=== PATIENT | male | born 1990 | race African-American/Black ===

== ENCOUNTER 2021-03-28 13:17 | Inpatient (IN) ==
[2021-03-28 13:53] LABS: Basophils # 0.1 10*3/uL (0.0-0.2); Basophils % 0.8 % (0.0-0.8); Eosinophils % 0.5 % (0.00-10.9); Hematocrit 44.2 VOL% (42.0-52.0); Hemoglobin 14.6 GM/DL (14.0-18.0); Immature Granulocytes % 0.5 %; Immature Granulocytes Absolute 0.03 #; Lymphocytes # 1.6 10*3/uL (1.4-4.0); Lymphocytes % 24.8 % (21.2-54.2); Mean Corpuscular Volume 90.4 FL (87-102); Mean Platelet Volume 11.7 FL (9.6-12.0); Monocytes % 7.2 % (1.7-12.7); Neutrophils % 66.2 % (38.7-73.9); Platelet Count 218 T/CUMM (130-400); Red Blood Count 4.89 MC/CUMM (3.8-5.5); Red Cell Distribution Width 15.7 % (9.3-17.3); White Blood Count 6.3 T/CUMM (4-12)
[2021-03-28 14:06] LABS: Albumin 4.1 G/DL (3.4-5.0); Calcium 9.2 MG/DL (8.5-10.1); Osmolality,Calculated 286.4 MOS/KG (273-304); Potassium 3.9 MMOL/L (3.5-5.1); Total Protein 8.2 G/DL (6.4-8.2)
[2021-03-28 14:11] LABS: ABG Base Excess -16.4 MMOL/L (-2.5-2.5); ABG HCO3 7.8 MMOL/L (20-26); ABG PH 7.271 (7.35-7.45); ABG TCO2 8.3 MMOL/L (23-27)
[2021-03-28 14:20] LABS: ABG PCO2 17.3 MM HG (35-48)
[2021-03-28] MEDS ORDERED: SODIUM CHLORIDE 0.9% 1,000 ML IV STA (14:25)
[2021-03-28] MEDS ORDERED: INSULIN REGULAR 100 UNIT/ML IV STA (14:26)
[2021-03-28] MEDS ORDERED: INSULIN REGULAR DRIP 100 ML IV PRN (14:46)
[2021-03-28] MEDS ORDERED: ALBUTEROL 2.5 MG/3 ML NEB RESP TX PRN (14:56)
[2021-03-28] MEDS ORDERED: ONDANSETRON 4 MG/2 ML VIAL IV PRN (14:56)
[2021-03-28] MEDS ORDERED: INSULIN REGULAR 100 UNIT/ML IV ONE (15:25)
[2021-03-28] MEDS ORDERED: MAGNESIUM SULF RIDER 2 GM/50 ML PREMIX IV PRN (15:25)
[2021-03-28] MEDS ORDERED: MAGNESIUM SULF RIDER 4 GM/100 ML PREMIX IV PRN (15:25)
[2021-03-28] MEDS ORDERED: SODIUM CHLORIDE 0.9% 1,000 ML IV ONE (15:25)
[2021-03-28] MEDS ORDERED: DEXTROSE 50% 25 GM/50 ML VIAL IV PRN ×3 (15:25)
[2021-03-28] MEDS ORDERED: POTASSIUM CHLORIDE RIDER 10 MEQ/100 ML PREMIX IV PRN (15:25)
[2021-03-28] MEDS ORDERED: SODIUM PHOSPHATE INJ 20 MMOL in SODIUM CHLORIDE 0.9% 250 ML IV PRN (15:25)
[2021-03-28] MEDS ORDERED: GLUCAGON 1 MG VIAL IM PRN (15:25)
[2021-03-28] MEDS ORDERED: SODIUM BICARB INJ 100 MEQ in STERILE WATER INJ 400 ML IV PRN (15:25)
[2021-03-28] MEDS ORDERED: INSULIN REGULAR DRIP 100 ML IV SCH ×2 (15:30→16:30)
[2021-03-28 15:49] LABS: Bilirubin,Urine Negative (Negative); Blood, Urine Small mg/dL (Negative); Glucose,Urine (UA) >=500 mg/dL (Negative); Ketones,Urine 80 mg/dL (Negative); Mucus,Urine Occasional /LPF (Occasional); Nitrite,Urine Negative (Negative); Protein,Urine Negative; RBC,Urine 1 /HPF (0-4); Squamous Epithelial Cell,Urine Occasional /HPF (0-10); Urine Appearance CLEAR (Clear); Urine Color Straw (Yellow); Urine Specific Gravity 1.029 (1.001-1.035); Urine Urobilinogen < 2.0 EU/DL (0.2-1.0)
[2021-03-28 16:21] LABS: Calcium 8.3 MG/DL (8.5-10.1); Osmolality,Calculated 291.4 MOS/KG (273-304); Potassium 3.1 MMOL/L (3.5-5.1)
[2021-03-28] MEDS: SODIUM CHLORIDE 0.9% 1,000 ML IV SCH ×2 (16:30→18:36)
[2021-03-28] MEDS ORDERED: SODIUM CHLORIDE IV ONE (17:00)
[2021-03-28] MEDS ORDERED: POTASSIUM CHLORIDE IV ONE (17:00)
[2021-03-28] MEDS: POTASSIUM CHLORIDE 20 MEQ TABLET PO SCH ×3 (18:41→22:30)
[2021-03-28] MEDS ORDERED: SODIUM CHLORIDE 0.9% 1,000 ML IV SCH (20:30)
[2021-03-28] MEDS: DEXTROSE 5% NACL 0.9% 1,000 ML IV SCH (21:09)
[2021-03-29] MEDS: DEXTROSE 5% NACL 0.9% 1,000 ML IV SCH ×2 (01:11→06:41)
[2021-03-29] MEDS: POTASSIUM CHLORIDE 20 MEQ TABLET PO SCH ×4 (02:36→16:50)
[2021-03-29 04:44] LABS: ABG HCO3 14.5 MMOL/L (20-26); ABG Oxygen Saturation 98.2 % (95-100); ABG PCO2 27.7 MM HG (35-48); ABG TCO2 11.4 MMOL/L (23-27)
[2021-03-29] MEDS ORDERED: SODIUM CHLORIDE 0.9% 1,000 ML IV SCH (05:00)
[2021-03-29 05:41] LABS: Basophils # 0.1 10*3/uL (0.0-0.2); Basophils % 0.9 % (0.0-0.8); Eosinophils # 0.1 10*3/uL (0.0-0.87); Eosinophils % 0.9 % (0.00-10.9); Hematocrit 40.3 VOL% (42.0-52.0); Hemoglobin 13.2 GM/DL (14.0-18.0); Immature Granulocytes % 0.4 %; Immature Granulocytes Absolute 0.02 #; Lymphocytes # 2.1 10*3/uL (1.4-4.0); Mean Corpuscular HGB Conc 32.8 GM/DL (32-36); Mean Corpuscular Volume 89.8 FL (87-102); Mean Platelet Volume 11.9 FL (9.6-12.0); Monocytes % 6.3 % (1.7-12.7); Neutrophils % 52.5 % (38.7-73.9); Platelet Count 188 T/CUMM (130-400); Red Blood Count 4.49 MC/CUMM (3.8-5.5); Red Cell Distribution Width 15.9 % (9.3-17.3); White Blood Count 5.3 T/CUMM (4-12)
[2021-03-29 06:51] LABS: Albumin 2.8 G/DL (3.4-5.0); Bilirubin,Total 0.7 MG/DL (0.20-1.00); Calcium 8.4 MG/DL (8.5-10.1); Osmolality,Calculated 287.1 MOS/KG (273-304); Potassium 3.5 MMOL/L (3.5-5.1)
[2021-03-29 06:52] LABS: Calcium 8.2 MG/DL (8.5-10.1); Osmolality,Calculated 283.4 MOS/KG (273-304); Potassium 3.5 MMOL/L (3.5-5.1)
[2021-03-29 08:01] LABS: Calcium 8.5 MG/DL (8.5-10.1); Osmolality,Calculated 282.3 MOS/KG (273-304); Potassium 3.4 MMOL/L (3.5-5.1)
[2021-03-29] MEDS ORDERED: MAGNESIUM SULF RIDER 2 GM/50 ML PREMIX IV ONE (08:04)
[2021-03-29] MEDS ORDERED: SODIUM CHLORIDE 0.45% 1,000 ML IV SCH (08:30)
[2021-03-29] MEDS: INSULIN REGULAR 100 UNIT/ML SUBCUT SCH ×4 (09:07→20:51)
[2021-03-29] MEDS: PANTOPRAZOLE 40 MG TABLET PO SCH (09:08)
[2021-03-29] MEDS: INSULIN GLARGINE 100 UNIT/ML SUBCUT SCH ×2 (09:08→09:09)
[2021-03-29] MEDS ORDERED: POTASSIUM PHOSPHATE 30 MMOL in SODIUM CHLORIDE 0.9% 250 ML IV ONE (10:00)
[2021-03-29 12:04] LABS: Calcium 8.4 MG/DL (8.5-10.1); Potassium 3.8 MMOL/L (3.5-5.1)
[2021-03-29] MEDS: LACTATED RINGERS 1,000 ML IV SCH ×2 (12:44→20:53)
[2021-03-30] MEDS: INSULIN REGULAR 100 UNIT/ML SUBCUT SCH ×6 (00:50→22:00)
[2021-03-30] MEDS: LACTATED RINGERS 1,000 ML IV SCH ×2 (04:15→13:03)
[2021-03-30] MEDS: PANTOPRAZOLE 40 MG TABLET PO SCH (08:44)
[2021-03-30] MEDS: INSULIN GLARGINE 100 UNIT/ML SUBCUT SCH ×2 (08:44→12:57)
[2021-03-30 09:35] LABS: Basophils % 0.6 % (0.0-0.8); Eosinophils # 0.1 10*3/uL (0.0-0.87); Eosinophils % 1.4 % (0.00-10.9); Hematocrit 36.8 VOL% (42.0-52.0); Hemoglobin 12.6 GM/DL (14.0-18.0); Immature Granulocytes % 0.2 %; Immature Granulocytes Absolute 0.01 #; Lymphocytes # 1.8 10*3/uL (1.4-4.0); Lymphocytes % 37.2 % (21.2-54.2); Mean Corpuscular HGB Conc 34.2 GM/DL (32-36); Mean Corpuscular Volume 88.5 FL (87-102); Mean Platelet Volume 10.9 FL (9.6-12.0); Monocytes % 10.5 % (1.7-12.7); Neutrophils % 50.1 % (38.7-73.9); Platelet Count 158 T/CUMM (130-400); Red Blood Count 4.16 MC/CUMM (3.8-5.5); Red Cell Distribution Width 15.5 % (9.3-17.3); White Blood Count 4.9 T/CUMM (4-12)
[2021-03-30 10:09] LABS: Albumin 2.7 G/DL (3.4-5.0); Bilirubin,Total 0.8 MG/DL (0.20-1.00); Calcium 8.3 MG/DL (8.5-10.1); Osmolality,Calculated 282.5 MOS/KG (273-304); Total Protein 5.6 G/DL (6.4-8.2)
[2021-03-30] MEDS ORDERED: POTASSIUM CHLORIDE 20 MEQ TABLET PO ONE (12:04)
[2021-03-30] MEDS ORDERED: INSULIN GLARGINE 100 UNIT/ML SUBCUT ONE (12:45)
[2021-03-30] MEDS: POTASSIUM CHLORIDE 20 MEQ TABLET PO PRN ×2 (15:41→17:58)
[2021-03-31] MEDS: INSULIN REGULAR 100 UNIT/ML SUBCUT SCH ×4 (01:11→12:20)
[2021-03-31 03:55] LABS: Basophils % 0.7 % (0.0-0.8); Eosinophils # 0.1 10*3/uL (0.0-0.87); Eosinophils % 1.7 % (0.00-10.9); Hematocrit 36.4 VOL% (42.0-52.0); Hemoglobin 12.2 GM/DL (14.0-18.0); Immature Granulocytes % 0.3 %; Immature Granulocytes Absolute 0.02 #; Lymphocytes # 2.8 10*3/uL (1.4-4.0); Lymphocytes % 48.3 % (21.2-54.2); Mean Corpuscular HGB Conc 33.5 GM/DL (32-36); Mean Corpuscular Volume 88.3 FL (87-102); Mean Platelet Volume 11.6 FL (9.6-12.0); Monocytes % 9.1 % (1.7-12.7); Neutrophils % 39.9 % (38.7-73.9); Platelet Count 166 T/CUMM (130-400); Red Blood Count 4.12 MC/CUMM (3.8-5.5); Red Cell Distribution Width 15.2 % (9.3-17.3); White Blood Count 5.7 T/CUMM (4-12)
[2021-03-31 04:15] LABS: Calcium 8.5 MG/DL (8.5-10.1); Potassium 2.8 MMOL/L (3.5-5.1)
[2021-03-31 04:18] LABS: Albumin 2.8 G/DL (3.4-5.0); Bilirubin,Total 0.7 MG/DL (0.20-1.00); Calcium 8.6 MG/DL (8.5-10.1); Osmolality,Calculated 282.8 MOS/KG (273-304); Potassium 2.8 MMOL/L (3.5-5.1); Total Protein 5.6 G/DL (6.4-8.2)
[2021-03-31] MEDS: POTASSIUM CHLORIDE 20 MEQ TABLET PO PRN ×4 (04:24→11:34)
[2021-03-31] MEDS: PANTOPRAZOLE 40 MG TABLET PO SCH (08:43)
[2021-03-31] MEDS: INSULIN GLARGINE 100 UNIT/ML SUBCUT SCH (08:44)
[2021-03-31 11:52] VITALS: BP 125/74
[2021-03-31 13:23] LABS: Calcium 8.8 MG/DL (8.5-10.1); Osmolality,Calculated 285.7 MOS/KG (273-304); Potassium 3.8 MMOL/L (3.5-5.1)
== END 2021-03-31 14:25 | disposition home or self-care (01) | DRG 638 ==
LOC: N.ED 13:17 → SUATTDRO 14:56 → N.EDINP 14:56 → N.ICU 15:38 → N.4E 03-29 13:28
PROVIDERS: ADMIT Internal Medicine; ATTEND Emergency Medicine